=== PATIENT | female | born 1985 | race Native Hawaiian/Other Pacific Islander ===

== ENCOUNTER 2018-11-25 14:51 | Inpatient (IN) | payer MEDICAID ==
[2018-11-25] MEDS ORDERED: PITOCin/NS 20 UNIT/1000ML DRIP 20,000 MILLIUNITS/1,000 ML BAG IV ONE (15:36)
[2018-11-25] MEDS ORDERED: MINERAL OIL PO PRN (15:40)
[2018-11-25] MEDS ORDERED: STADOL IV PRN (15:40)
[2018-11-25] MEDS ORDERED: BRETHINE SUB-Q PRN (15:40)
[2018-11-25] MEDS ORDERED: BRETHINE IVP PRN (15:40)
[2018-11-25] MEDS ORDERED: SUBLIMAZE IV PRN (15:40)
[2018-11-25] MEDS ORDERED: LACTATED RINGERS 1,000 ML IV SCH (16:00)
[2018-11-25] MEDS ORDERED: PITOCin/NS 20 UNIT/1000ML DRIP 20 UNITS/1,000 ML BAG IV SCH (16:00)
[2018-11-25 16:18] LABS: Hematocrit 38.6 % (30.3-42.9); Hemoglobin 13.1 gm/dl (10.1-14.3); Mean Corpuscular HGB Conc 34 % (30-34); Mean Corpuscular Volume 96 fl (79-97); Platelet Count 185 K/mm3 (140-440); Red Blood Count 4.03 M/mm3 (3.65-5.03); Red Cell Distribution Width 13.7 % (13.2-15.2)
[2018-11-25] MEDS ORDERED: LANSINOH TP PRN (18:19)
[2018-11-25] MEDS ORDERED: ZOFRAN IV PRN (18:19)
[2018-11-25] MEDS ORDERED: TUCKS PAD TP PRN (18:19)
[2018-11-25] MEDS ORDERED: MILK OF MAGNESIA PO PRN (18:19)
[2018-11-25] MEDS ORDERED: DULCOLAX PR PRN (18:19)
[2018-11-25] MEDS ORDERED: BENADRYL PO PRN (18:19)
[2018-11-25] MEDS ORDERED: PHENERGAN PO PRN (18:19)
[2018-11-25] MEDS ORDERED: NORCO 5/325 PO PRN (18:19)
[2018-11-25] MEDS ORDERED: TYLENOL PO PRN (18:19)
--- NOTE | 2018-11-25 18:44 | History and Physical Report ---
History of Present Illness Date of examination: 11/25/18 Date of admission: 11/25/18 15:22 Chief complaint: Intense labor pains History of present illness: 33 yo Fe TUNDE 12/16/2018 ([place]) 37 weeks 0days, presents in spontaneous labor. Pt initiated early care with [facility] at 8w1d. AMA ([facility] Low risk). Hx GDMx2. Early GTT 180. 3 hr WNL. Repeat 3hr GTT 09/28/17 WNL. Abnormal PAP: ASCUS, Positive HR HPV. Colpo 06/10/18 (repeat PP). labs: B positive, Rubella immune, VDRL NR, HBsAg Neg, HIV Neg, Gc/CL Neg, GBS Negative. Past History Past Medical History: diabetes (GDMx2. 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 Colpo 08/03. Plan to repeat PP. ). denies: chlamydia, gonorrhea, hepatitis B, hepatitis C, herpes, HIV, syphilis, trichomonas Family/Genetic History: none Social history: , lives with family, full code. denies: smoking, alcohol abuse, prescription drug abuse, IV drug use - Obstetrical History Expected Date of Delivery: 12/16/18 Actual Gestation: 37 Week(s) 0 Day(s) : 3 Para: 2 Hx # Term Pregnancies: 2 Number of Pregnancies: 0 Spontaneous Abortions: 0 Induced : 0 Number of Living Children: 2 #1 Infant Gender: Male year: 2,[birth year] Birthweight: 3.09 kg Method of Delivery: Vaginal Gestational age at delivery: 40 Complications: none #2 Infant Gender: Male year: 2,[birth year] Birthweight: 3.544 kg Method of Delivery: Vaginal Gestational age at delivery: 40 Complications: none Medications and Allergies Allergies Allergy/AdvReac Type Severity Reaction Status Date / Time No Known Allergies Allergy Unverified 11/25/18 14:55 Home Medications Medication Instructions Recorded Confirmed Last Taken Type No Known Home Medications [No 11/25/18 11/25/18 Unknown History Reported Home Medications] Active Meds: Active Medications Butorphanol Tartrate (Stadol) 2 mg IV Q2H PRN PRN Reason: Pain , Severe (7-10) Ephedrine Sulfate (Ephedrine Sulfate) 10 mg IV Q2M PRN PRN Reason: Hypotension Fentanyl (Sublimaze) 100 mcg IV Q2H PRN PRN Reason: Labor Pain Lactated Ringer's (Lactated Ringers) 1,000 mls @ 125 mls/hr IV DIRECT YENI Last Admin: 11/25/18 16:11 Dose: 125 mls/hr Documented by: Oxytocin/Sodium Chloride (Pitocin/Ns 20 Unit/1000ml Drip) 20 units in 1,000 mls @ 125 mls/hr IV DIRECT YENI Mineral Oil (Mineral Oil) 30 ml PO QHS PRN PRN Reason: Constipation Terbutaline Sulfate (Brethine) 0.25 mg SUB-Q ONCE PRN PRN Reason: Hyperstimulation/Hypertonicity Terbutaline Sulfate (Brethine) 0.25 mg IVP ONCE PRN PRN Reason: Hyperstimulation/Hypertonicity Review of Systems Eyes: normal appearance Cardiovascular: no chest pain, no shortness of breath Respiratory: no shortness of breath Breasts: normal Gastrointestinal: abdominal pain (contractions), no nausea, no vomiting, no diarrhea, no constipation Genitourinary: contractions, no normal appearance, no vaginal bleeding, no genital sores Integumentary: no rash, no sores, no lesions Neurological: other (Denies) Psychiatric: other (Denies) Endocrine: other (Denies) - Vital Signs Vital signs: Vital Signs Pulse BP 102 H 131/77 11/25/18 15:08 11/25/18 15:08 Temp Pulse Resp BP Pulse Ox 97.8 F 90 20 107/57 11/25/18 16:08 11/25/18 18:09 11/25/18 15:11 11/25/18 18:09 - Physical Exam Breasts: Positive: normal Cardiovascular: Regular rate, Normal S1, Normal S2, No murmurs Lungs: Positive: Clear to auscultation, Normal air movement Abdomen: Positive: normal appearance, soft, normal bowel sounds. Negative: distention Genitourinary (Female): Positive: normal external genitalia, normal perenium Vagina: Positive: normal moisture Uterus: Positive: enlarged (gravid) Anus/Rectum: Positive: normal perianal skin, hemorrhoids Extremities: Positive: normal Deep Tendon Reflex Grade: Normal +2 - Obstetrical FHR: category 1 Uterine Contraction Monitor Mode: External Cervical Dilatation: 7 (On admission per triage) Cervical Effacement Percentage: 100 station: 0 Uterine Contraction Pattern: Irregular Uterine Tone Measurement Phase: Resting Uterine Contraction Intensity: Strong/Firm Results Result Diagrams: 11/25/18 15:50 Abnormal lab results 11/25/18 Range/Units 15:50 WBC 12.0 H (4.5-11.0) K/mm3 MCH 33 H (28-32) pg All other labs normal. Assessment and Plan A: Term IUP at 37w0d AMA; 33 yo Active labor Category 1 tracing GBS neg P: Admit to L&D; Routine labor orders May have IV pain med/epidural Anticipate
--- NOTE | 2018-11-25 18:55 | Procedure Note ---
OB Delivery Note - Delivery Date of Delivery: 11/25/18 (17:55) Surgeon: KAYLA CRUZ (ODILIA) Estimated blood loss: 100cc - Vaginal Delivery presentation: vertex Delivery position: OA Delivery induction: none Delivery monitor: external FHT, external uterine Route of delivery: (17:55) Delivery placenta: spontaneous (18:01) Delivery cord: 3 umbilical vessels, other (Velamentous Cord insertion) Episiotomy: none Delivery laceration: none Anesthesia: none Delivery comments: viable male over intact perineum at 17:55. Vigorous placed [id number] on mothers abdomen. Delayed cord clamping. Cord then cut by FOB with my guidance. Spontaneous jesus delivery of intact placenta at 18:01. 3 VC. Significant velamentous cord insertion noted. Placenta to pathology. FF@U-2. Bleeding small. No tears or lacerations. EBL 100cc. and mother left in stable condition in L&D. - A at 1 minute: 8 at 5 minutes: 9 Infant Gender: Male (6lbs 9oz, 2889 grams, 19")
[2018-11-25] MEDS ORDERED: IBUPROFEN PO SCH (19:00)
[2018-11-25] MEDS ORDERED: SODIUM CHLORIDE FLUSH SYRINGE 10 ML IV NR (19:00)
[2018-11-26] MEDS: IBUPROFEN PO SCH ×3 (03:15→23:31)
[2018-11-26 08:35] LABS: Hematocrit 37.6 % (30.3-42.9); Hemoglobin 12.5 gm/dl (10.1-14.3)
--- NOTE | 2018-11-26 11:23 | Progress Note ---
Assessment and Plan - Patient Problems (1) Status post normal vaginal delivery Current Visit: Yes Status: Acute Plan to address problem: PPD 1 - stable Continue routine orders Anticipate discharge in 24 hours Subjective - Subjective Date of service: 11/26/18 Principal diagnosis: PPD #1; s/p Interval history: see H&P and OB Delivery Procedure note Patient reports: appetite normal, voiding normally, pain well controlled, ambulating normally, no dizzy ambulation [place]: doing well, other (breast and bottle feeding) Objective - Vital Signs Latest vital signs: Vital Signs Temp Pulse Resp BP BP Pulse Ox 11/26/18 08:38 98.1 F 60 18 110/70 96 11/26/18 04:15 98.2 F 67 20 104/51 11/26/18 00:00 98.4 F 76 20 104/73 99 11/25/18 20:45 98.2 F 83 20 114/63 97 11/25/18 19:39 82 119/61 11/25/18 19:09 83 134/64 11/25/18 19:00 97.6 F 11/25/18 18:39 85 105/58 11/25/18 18:25 86 100/55 11/25/18 18:09 90 107/57 11/25/18 17:39 110 H 137/73 11/25/18 17:10 88 125/68 11/25/18 16:42 91 H 135/76 11/25/18 16:08 97.8 F 11/25/18 15:11 98.8 F 20 11/25/18 15:08 102 H 131/77 Intake and Output 11/25/18 11/26/18 11/26/18 23:59 07:59 15:59 Intake Total 440 Output Total 1200 300 Balance -760 -300 Intake: Oral 440 Output: Urine 1200 300 Void 1200 300 Other: Total, Intake Amount 200 Total, Output Amount 600 300 # Voids Void 1 2 Estimated Blood Loss 100 - Exam Cardiovascular: Present: Regular rate Lungs: Present: Clear to auscultation Abdomen: Present: normal appearance, soft Vulva: both: normal Uterus: Present: normal, firm, fundal height at umbilicus Extremities: Present: normal Comments: small lochia - Labs Labs: Abnormal lab results 11/25/18 Range/Units 15:50 WBC 12.0 H (4.5-11.0) K/mm3 MCH 33 H (28-32) pg
[2018-11-27] MEDS: IBUPROFEN PO SCH (06:24)
--- NOTE | 2018-11-27 10:05 | Progress Note ---
Assessment and Plan A: day 2 S/P spontaneous vaginal delivery. P: Discharge patient home today. Discussed with patient discharge instructions and warning signs. Advised patient to continue taking her vitamins at home. Advised patient to avoid intercourse, lifting and heavy housework. Advised patient to return to OB clinic in 6 weeks for exam. Patient is undecided re: control; will discuss at 6 week visit; until then she is to avoid intercourse. Patient voiced understanding of all instructions. Subjective - Subjective Date of service: 11/27/18 Principal diagnosis: PPD #2; s/p Interval history: day 2 S/P spontaneous vaginal delivery. Doing well. Desires discharge today. Voiding without difficulty, ambulating well, tolerating a regular diet. Patient denies headache, chest pain, cough, shortness of breath, leg pain, abdominal pain, heavy bleeding, nausea or vomiting, or dizziness or any other problems. Patient reports: appetite normal, voiding normally, pain well controlled, flatus, ambulating normally, no dizzy ambulation, no nauseated [place]: doing well Objective - Vital Signs Latest vital signs: Vital Signs Temp Pulse Resp BP BP Pulse Ox 11/27/18 08:20 97.7 F 71 16 116/68 97 11/27/18 00:08 98.6 F 73 16 113/69 89 11/26/18 16:05 97.3 F L 69 18 101/58 96 11/26/18 13:54 97.6 F 73 16 113/67 96 Intake and Output 11/26/18 11/27/18 11/27/18 23:59 07:59 15:59 Intake Total 300 300 Balance 300 300 Intake: Intake, Free Water 300 300 - Exam Cardiovascular: Present: Regular rate, Normal S1, Normal S2 Lungs: Present: Clear to auscultation Abdomen: Present: normal appearance, soft. Absent: distention, tenderness, guarding, rigidity Uterus: Present: normal, firm, fundal height below umbilicus. Absent: bogginess, tenderness Extremities: Present: normal. Absent: tenderness, edema
--- NOTE | 2018-11-27 10:11 | Discharge Summary ---
<MATI RAMSAY - Last Filed: 11/27/18 10:07> Providers - Providers Date of Admission: 11/25/18 15:22 Date of discharge: 11/27/18 Attending physician: MARIAM BURR MD None Primary care physician: MARIAM BURR MD Hospitalization Reason for admission: active labor Delivery: Episiotomy: none Laceration: none Other procedures: none complications: none Discharge diagnosis: IUP at term delivered [place] baby: male Pertinent studies: Labs Hospital course: Normal hospital course. Condition at discharge: Good Disposition: DC-01 TO HOME OR SELFCARE - Discharge Diagnoses (1) Term delivered Status: Acute Plan - Provider Discharge Summary Activity: routine, no sex for 6 weeks, no heavy lifting 4 weeks, no strenuous exercise Diet: routine Instructions: routine Additional instructions: Continue taking your vitamins at home. Call your doctor immediately for: * Fever > 100.5 * Heavy vaginal bleeding ( >1 pad per hour) * Severe persistent headache * Shortness of breath * Reddened, hot, painful area to leg or breast - Follow up plan Follow up: MARIAM BURR MD [Primary Care Provider] - 6 [address] Forms: [facility] Discharge Summary <JUAN PALOMINO - Last Filed: 11/28/18 13:12> Providers - Providers Date of Admission: 11/25/18 15:22 Attending physician: MARIAM BURR MD Primary care physician: MARIAM BURR MD Hospitalization Hospital course: Laboratory Tests 11/25/18 11/25/18 11/25/18 15:50 15:50 16:31 WBC 12.0 H RBC 4.03 Hgb 13.1 Hct 38.6 MCV 96 MCH 33 H MCHC 34 RDW 13.7 Plt Count 185 RPR Nonreactive Blood Type B POSITIVE Antibody Screen Negative 11/26/18 08:20 WBC RBC Hgb 12.5 Hct 37.6 MCV MCH MCHC RDW Plt Count RPR Blood Type Antibody Screen Plan - Provider Discharge Summary Additional instructions: [] Smoking cessation referral if applicable(refer to patient education folder for contact #) [] Refer to [facility] Booklet Call your doctor immediately for: * Fever > 100.5 * Heavy vaginal bleeding ( >1 pad per hour) * Severe persistent headache * Shortness of breath * Reddened, hot, painful area to leg or breast * Drainage or odor from incision. * Keep incision clean and dry at all times and follow doctor's instructions regarding bathing/showering
[2018-11-27 11:07] VITALS: BP 105/63
== END 2018-11-27 12:12 | disposition home or self-care (01) | DRG 807 ==
LOC: TRG 14:51 → LD 15:22 → OB 20:46
PROVIDERS: ADMIT Obstetrics & Gynecology; ATTEND Obstetrics & Gynecology
PROC: 10E0XZZ Delivery of Products of Conception, External Approach (ICD-10-PCS; principal; 2018-11-25)
DX: O43.123 Velamentous insertion of umbilical cord, third trimester (principal); Z37.0 Single live birth; O24.92 Unspecified diabetes mellitus in childbirth; Z3A.37 37 weeks gestation of pregnancy
CPT/HCPCS: 36415; 59025; 85014; 85018; 85027; 86592; 86850; 86900; 86901; 88307; G0378; J2590; J7120